=== PATIENT | female | born 1945 | race Two or more races ===

== ENCOUNTER 2017-09-21 13:16 | Inpatient (IN) | payer MEDICARE, MEDICAID ==
[~2017-09-21] VITALS: Ht 167.6 cm; Wt 76.2 kg
--- NOTE | 2017-09-21 13:32 | NUR ---
[employer] OFFICE SERVICES REPRESENTATIVE AT BEDSIDE FOR EVAL.
[2017-09-21 13:48] LABS: BASOPHILS % (AUTO) 0.3 % (0.0-2.0); EOSINOPHILS # (AUTO) 0.2 /CMM (0.0-0.7); EOSINOPHILS % (AUTO) 2.1 % (0.0-6.0); HEMATOCRIT 36 % (33-45); HEMOGLOBIN 12.3 g/dL (11.5-14.8); LYMPHOCYTES % (AUTO) 28.1 % (20.0-44.0); MEAN CORPUSCULAR HEMOGLOBIN 30 PG (26.0-33.0); MEAN CORPUSCULAR HGB CONC 34 g/dl (31.0-36.0); MEAN CORPUSCULAR VOLUME 90 fL (82-100); MONOCYTES # (AUTO) 0.6 /CMM (0.1-1.30); MONOCYTES % (AUTO) 7.8 % (2.0-12.0); NEUTROPHILS # (AUTO) 4.4 /CMM (1.8-8.9); NEUTROPHILS % (AUTO) 61.7 % (43.0-81.0); PLATELET COUNT (AUTO) 240 /CMM (150-450); RDW COEFFICIENT OF VARIATION 12.8 (11.5-15.0); RED BLOOD CELL COUNT(AUTO) 4.07 MIL/uL (4.0-5.2); WHITE BLOOD COUNT (AUTO) 7.2 K/uL (4.3-11.0)
[2017-09-21 14:03] LABS: CALCIUM, SERUM 8.7 mg/dL (8.5-10.1); CARBON DIOXIDE 24 mmol/L (21-32); CHLORIDE 102 mmol/L (98-107); CREATININE 2.3 mg/dL (0.6-1.3); GLUCOSE 103 mg/dL (74-106); POTASSIUM 3.7 mmol/L (3.5-5.1); SODIUM SERUM 136 mmol/L (136-145); UREA NITROGEN, BLOOD 30 mg/dL (7-18)
[2017-09-21 14:07] LABS: INR 0.96 (0.87-1.13)
[2017-09-21 15:10] LABS: TROPONIN I < 0.017 ng/mL (0.00-0.056)
--- NOTE | 2017-09-21 15:19 | NUR ---
ROOM 112-2 FOR BED
[2017-09-21 15:45] LABS: APPEARANCE,URINE Clear (CLEAR); BILIRUBIN,URINE Negative (NEGATIVE); BLOOD, URINE Trace-lysed Ery/uL (NEGATIVE); COLOR,URINE Yellow (YELLOW); KETONES,URINE Negative (NEGATIVE); LEUKOCYTE ESTERASE ,URINE Small (NEGATIVE); NITRITE, URINE Negative (NEGATIVE); PH,URINE 6.5 (5.0-8.0); PROTEIN,URINE Trace mg/dl (NEGATIVE); UGLUCOSE Negative (NEGATIVE); UROBILINOGEN,URINE 0.2 EU/dL (0.2)
[2017-09-21 15:58] LABS: BACTERIA,URINE Many /HPF (None Seen); RBC,URINE 0-2 /HPF (0-2)
[2017-09-21 15:59] LABS: SQUAMOUS EPITHELIAL CELL,UR Few /HPF (None Seen)
[2017-09-21] MEDS: CEFTRIAXONE 1 G in IV D5W 50 ML IV SCH (16:00)
--- NOTE | 2017-09-21 16:01 | NUR ---
REPORT GIVEN TO DEVIN. PT AWAITING TRANSFER TO FLOOR.
--- NOTE | 2017-09-21 16:11 | NUR ---
SENIOR PHYSICIAN AT BEDSIDE FOR BLOOD DRAW.
[2017-09-21] MEDS ORDERED: CEFTRIAXONE 1GM BAG (ER ONLY) 100 ML IV ONE (16:12)
[2017-09-21] MEDS ORDERED: CEFTRIAXONE 2 G in IV D5W 50 ML IV ONE (16:30)
[2017-09-21 17:00] VITALS: BP 110/30
--- NOTE | 2017-09-21 17:00 | NUR ---
RN NOTE RECEIVED PT ON BED, AOX1, FARSI ONLY SPEAKING, DAUGHTER AT BED SIDE, PER DAUGHTER PT DOES NOT MAKE MUCH SENSE WHEN TALKING, IV IN LEFT HAND, INFUSING ROCEPHIN, PT STABLE, VS STABLE, BED ALARM ON, CALL LIGHT WITHIN REACH, SKIN INTACT, INSURANCE PREMIUM AUDITOR IN PLACE, SR . DIAPER IN PLACE. WILL WAIT FOR DR SPRING TO PUT ADMITTING ORDERS. WILL MONITOR THE PT.
[2017-09-21] MEDS ORDERED: CARV3.122 PO (17:57)
[2017-09-21] MEDS ORDERED: DONE10TA44 PO (17:58)
[2017-09-21 18:00] VITALS: BP 110/30
[2017-09-21] MEDS ORDERED: ESCI20TA PO (18:00)
[2017-09-21] MEDS ORDERED: LOSA50TA21 PO (18:03)
[2017-09-21] MEDS ORDERED: MEMA10TA PO (18:04)
[2017-09-21] MEDS ORDERED: PANT40TA4 PO (18:08)
[2017-09-21] MEDS ORDERED: PRAV40TA3 PO (18:09)
[2017-09-21] MEDS ORDERED: TRIA1CAP6 PO (18:10)
[2017-09-21] MEDS ORDERED: SOLI10TA PO (18:11)
[2017-09-21] MEDS ORDERED: MULT-194 PO (18:14)
[2017-09-21] MEDS ORDERED: IBAN150T PO (18:15)
[2017-09-21] MEDS ORDERED: MAGNESIUM HYDROXIDE 30 ML UDC PO PRN (18:30)
[2017-09-21] MEDS ORDERED: ACETAMINOPHEN 325 MG TABLET PO PRN (18:30)
[2017-09-21] MEDS ORDERED: Z GUARD REMEDY 2 OZ OINT TP PRN (18:30)
[2017-09-21] MEDS ORDERED: HYDROCODONE/APAP 5/325MG 1 EACH TABLET PO PRN (18:30)
[2017-09-21] MEDS ORDERED: MAG HYDROX/AL HYDROX/SIMETH 30 ML UDC PO PRN (18:30)
[2017-09-21] MEDS ORDERED: ONDANSETRON HCL/PF 4 MG/2 ML VIAL IVP PRN (18:30)
--- NOTE | 2017-09-21 19:00 | NUR ---
RN NOTE ROCEPHIN WAS GIVEN 2 G, THUS THE NEW ORDER FOR ROCEPHIN 1 G HELD UNTIL TOMORROW. ENDORSE TO CRADLE SLIDE MAKER.
[2017-09-21] MEDS: IV NS 0.9% 1,000 ML IV PRN (19:49)
[2017-09-21 20:00] VITALS: BP 104/36
--- NOTE | 2017-09-21 20:00 | NUR ---
RN NOTES UNABLE TO CHECK ORTHOSTATICS, PATIENT NONCOMPLIANT, REFUSING CARE AFTER FIRST SET OF VITALS TAKEN
[2017-09-21 20:20] LABS: AMYLASE 57 U/L (25-115); LIPASE 177 U/L (73-393)
--- NOTE | 2017-09-21 20:56 | NUR ---
RN NOTES PATIENT AGITATED AFTER LAB CAME TO DRAW BLOOD. PATIENT STILL CONFUSED, DOES NOT FOLLOW DIRECTIONS. PATIENT NOW ATTEMPTING TO PULL OUT IV ACCESS. DR LEWIS MADE AWARE, WITH NEW ORDER FOR BILATERAL SOFT WRIST RESTRAINTS. WILL APPLY RESTRAINTS AND CLOSELY MONITOR THE PATIENT. CHARGE NURSE LOIUSE MADE AWARE, PATIENT MOVED CLOSER TO THE NURSING STATION FOR CLOSER MONITORING
[2017-09-21] MEDS: DONEPEZIL 5 MG TABLET PO SCH (21:11)
[2017-09-22] VITALS (9 sets, daily range): BP systolic 106–146; BP diastolic 53–82
--- NOTE | 2017-09-22 06:33 | NUR ---
RN CLOSING NOTES PATIENT IN BED, REFUSED AM LABS, SHAKING ARMS BACK AND FORTH, LAWYERS UNABLE TO DRAW LABS FOR SAFETY RISK. PER LAB, THEY WILL COME BACK AT A LATER TIME TO TRY AGAIN. Addendum: 09/22/17 at 0635 by ANGELA REILLY RN WILL ENDORSE THE PATIENT TO THE AM SHIFT NURSE FOR RICH
[2017-09-22] MEDS ORDERED: Medication Not On Formulary EA (Solifenacin Succinate (Vesicare) 1 TAB) PO SCH (09:00)
[2017-09-22] MEDS ORDERED: CARVEDILOL 3.125 MG TABLET PO SCH (09:00)
[2017-09-22] MEDS ORDERED: Medication Not On Formulary EA (Pravastatin Sodium 1 TAB) PO SCH (09:00)
[2017-09-22] MEDS: PANTOPRAZOLE 40 MG TABLET.DR PO SCH (09:32)
[2017-09-22] MEDS: ESCITALOPRAM OXALATE (10 MG) 10 MG TABLET PO SCH (09:32)
[2017-09-22] MEDS: MEMANTINE HCL 5 MG TABLET PO SCH (09:32)
[2017-09-22] MEDS: MULTIPLE VIT (LYCOPENE/FA/MV,CA,IRON,MIN/LUT)1 TAB PO SCH (09:32)
[2017-09-22] MEDS: AMLODIPINE BESYLATE 5 MG TABLET PO SCH (09:33)
[2017-09-22 10:54] LABS: BASOPHILS % (AUTO) 0.3 % (0.0-2.0); EOSINOPHILS # (AUTO) 0.1 /CMM (0.0-0.7); EOSINOPHILS % (AUTO) 1.5 % (0.0-6.0); HEMATOCRIT 38 % (33-45); HEMOGLOBIN 12.7 g/dL (11.5-14.8); LYMPHOCYTES # (AUTO) 1.7 /CMM (0.8-4.8); LYMPHOCYTES % (AUTO) 25.7 % (20.0-44.0); MEAN CORPUSCULAR HEMOGLOBIN 30 PG (26.0-33.0); MEAN CORPUSCULAR HGB CONC 34 g/dl (31.0-36.0); MEAN CORPUSCULAR VOLUME 89 fL (82-100); MONOCYTES # (AUTO) 0.5 /CMM (0.1-1.30); MONOCYTES % (AUTO) 6.9 % (2.0-12.0); NEUTROPHILS # (AUTO) 4.3 /CMM (1.8-8.9); NEUTROPHILS % (AUTO) 65.6 % (43.0-81.0); PLATELET COUNT (AUTO) 212 /CMM (150-450); RDW COEFFICIENT OF VARIATION 12.8 (11.5-15.0); RED BLOOD CELL COUNT(AUTO) 4.23 MIL/uL (4.0-5.2); RETICULOCYTE COUNT 1.6 % (0.6-2.5); WHITE BLOOD COUNT (AUTO) 6.6 K/uL (4.3-11.0)
[2017-09-22 11:19] LABS: INR 1.01 (0.87-1.13); PROTHROMBIN TIME 10.5 SECS (9.5-12.7)
[2017-09-22 11:21] LABS: IRON, SERUM 24 ug/dl (50-175); TOTAL IRON BINDING CAPACITY 213 ug/dl (250-450)
[2017-09-22 11:22] LABS: ALANINE AMINOTRANSFERASE 38 U/L (12-78); ALBUMIN 3.2 g/dL (3.4-5.0); ALKALINE PHOSPHATASE 61 U/L (46-116); ASPARTATE AMINOTRANSFERASE 26 U/L (15-37); BILIRUBIN,TOTAL 0.4 mg/dL (0.2-1.0); CALCIUM, SERUM 9.2 mg/dL (8.5-10.1); CARBON DIOXIDE 26 mmol/L (21-32); CHLORIDE 105 mmol/L (98-107); CREATININE 1.8 mg/dL (0.6-1.3); GLUCOSE 136 mg/dL (74-106); PHOSPHORUS 4.3 mg/dL (2.5-4.9); POTASSIUM 3.6 mmol/L (3.5-5.1); SODIUM SERUM 141 mmol/L (136-145); TOTAL PROTEIN, SERUM 6.9 g/dL (6.4-8.2); UREA NITROGEN, BLOOD 24 mg/dL (7-18)
[2017-09-22 11:40] LABS: CHOLESTEROL 109 mg/dL (<200); HDL CHOLESTEROL 35 mg/dL (40-60); LDL 59 mg/dL (0-99); THYROID STIMULATING HORMONE 0.408 uIU/mL (0.358-3.74); TRIGLYCERIDES 108 mg/dL (30-150)
[2017-09-22 11:46] LABS: TROPONIN I 0.014 ng/mL (0.00-0.056)
[2017-09-22] MEDS: IV NS 0.9% 1,000 ML IV PRN (12:18)
[2017-09-22] MEDS: ASPIRIN EC 325 MG TABLET.DR PO SCH (13:54)
[2017-09-22] MEDS: CEFTRIAXONE 1 G in IV D5W 50 ML IV SCH (15:25)
[2017-09-22] MEDS: OXYBUTYNIN CHLORIDE 5 MG TABLET PO SCH (17:10)
--- NOTE | 2017-09-22 19:45 | NUR ---
DOCUMENTATION COORDINATOR INITIAL NOTE PT RECEIVED IN NO ACUTE DISTRESS AT THIS TIME. PT IS A/O X1 FARSI SPEAKING WITH FAMILY AT BEDSIDE. ON TELE WITH SB 58. PT HAS A RFA 22G THAT IS CLEAN DRY AND INTACT. PT HAS TAKEN OFF NC 2L BUT WILL ATTEMPT TO PLACE ON HER AGAIN. COMFORT AND SAFETY MEASURES TO BE ENSURED DURING THE SHIFT. WILL CONTINUE TO MONITOR FOR ANY CHANGES.
[2017-09-22] MEDS: DONEPEZIL 5 MG TABLET PO SCH (21:44)
--- NOTE | 2017-09-22 22:21 | NUR ---
RN NOTES MD WITH NEW ORDER FOR 1:1 SITTER, BILATERAL SOFT WRIST RESTRAINTS DC'D
[2017-09-23] VITALS: BP 142/62
[2017-09-23 04:00] VITALS: BP 120/50
--- NOTE | 2017-09-23 07:59 | NUR ---
ACCOUNTS PAYABLE ASSOCIATE NOTE PATIENT IN BED , RESTING COMFORTABLY , ON RA NO SOB NOTED , ON TELE MONITOR SR 61 , RT FA HL INTACT NO S\S INFECTION NOTED , ON IVF ORDERED, BED IN LOWEST AND LOCKED POSITION , CALL LIGHT WITHIN REACH, WITH SITTER AT BED SIDE ,RESPIRATION EVEN UNLABORED , WILL CONT TO MONITOR CLOSELY
[2017-09-23 08:00] VITALS: BP 140/72
[2017-09-23] MEDS: MEMANTINE HCL 5 MG TABLET PO SCH (08:36)
[2017-09-23] MEDS: AMLODIPINE BESYLATE 5 MG TABLET PO SCH (08:37)
[2017-09-23] MEDS: ESCITALOPRAM OXALATE (10 MG) 10 MG TABLET PO SCH (08:39)
[2017-09-23] MEDS: OXYBUTYNIN CHLORIDE 5 MG TABLET PO SCH ×3 (08:40→16:26)
[2017-09-23] MEDS: ASPIRIN EC 325 MG TABLET.DR PO SCH (08:40)
[2017-09-23] MEDS: ATORVASTATIN 10 MG TABLET PO SCH (08:42)
[2017-09-23] MEDS: MULTIPLE VIT (LYCOPENE/FA/MV,CA,IRON,MIN/LUT)1 TAB PO SCH (08:43)
[2017-09-23] MEDS: PANTOPRAZOLE 40 MG TABLET.DR PO SCH (08:43)
[2017-09-23 09:33] LABS: BASOPHILS % (AUTO) 0.6 % (0.0-2.0); EOSINOPHILS # (AUTO) 0.2 /CMM (0.0-0.7); EOSINOPHILS % (AUTO) 3.3 % (0.0-6.0); HEMATOCRIT 37 % (33-45); HEMOGLOBIN 12.5 g/dL (11.5-14.8); LYMPHOCYTES # (AUTO) 1.6 /CMM (0.8-4.8); LYMPHOCYTES % (AUTO) 34.9 % (20.0-44.0); MEAN CORPUSCULAR HEMOGLOBIN 30 PG (26.0-33.0); MEAN CORPUSCULAR HGB CONC 34 g/dl (31.0-36.0); MEAN CORPUSCULAR VOLUME 89 fL (82-100); MONOCYTES # (AUTO) 0.3 /CMM (0.1-1.30); MONOCYTES % (AUTO) 6.9 % (2.0-12.0); NEUTROPHILS # (AUTO) 2.5 /CMM (1.8-8.9); NEUTROPHILS % (AUTO) 54.3 % (43.0-81.0); PLATELET COUNT (AUTO) 216 /CMM (150-450); RDW COEFFICIENT OF VARIATION 12.5 (11.5-15.0); RED BLOOD CELL COUNT(AUTO) 4.16 MIL/uL (4.0-5.2); WHITE BLOOD COUNT (AUTO) 4.7 K/uL (4.3-11.0)
[2017-09-23 09:54] LABS: ALANINE AMINOTRANSFERASE 34 U/L (12-78); ALBUMIN 3.2 g/dL (3.4-5.0); ALKALINE PHOSPHATASE 61 U/L (46-116); ASPARTATE AMINOTRANSFERASE 25 U/L (15-37); BILIRUBIN,TOTAL 0.3 mg/dL (0.2-1.0); CARBON DIOXIDE 28 mmol/L (21-32); CHLORIDE 106 mmol/L (98-107); CREATININE 1.3 mg/dL (0.6-1.3); GLUCOSE 118 mg/dL (74-106); MAGNESIUM 1.8 mg/dL (1.8-2.4); PHOSPHORUS 3.4 mg/dL (2.5-4.9); POTASSIUM 3.3 mmol/L (3.5-5.1); SODIUM SERUM 142 mmol/L (136-145); TOTAL PROTEIN, SERUM 7.1 g/dL (6.4-8.2); TROPONIN I < 0.017 ng/mL (0.00-0.056); UREA NITROGEN, BLOOD 16 mg/dL (7-18)
--- NOTE | 2017-09-23 10:43 | NUR ---
VORTEX OPERATOR NOTE SEEN BY PT ,ABLE TO AMBULATE WITH WALKER IN HALLWAY WITH MIN ASSISTANCE
[2017-09-23 12:00] VITALS: BP 132/46
--- NOTE | 2017-09-23 12:00 | NUR ---
BUSINESS CONTINUITY DIRECTOR NOTE AMBULATE WITH STUFF NOT IN ACUTE DISTRESS, WILL CONT TO MONITOR CLOSELY
[2017-09-23] MEDS ORDERED: FLU VACC QS 2017-18(36MOS+)/PF 0.5 ML DISP.SYRIN IM ONE (15:00)
[2017-09-23] MEDS: CEFTRIAXONE 1 G in IV D5W 50 ML IV SCH (15:25)
--- NOTE | 2017-09-23 15:30 | NUR ---
MS RN NOTE TELE REMOVED ORDERED ,WILL CONT TO MONITOR CLOSELY
--- NOTE | 2017-09-23 15:32 | NUR ---
MS RN NOTE FLU VACCINE GIVEN ORDERED
[2017-09-23 16:00] VITALS: BP 116/74
[2017-09-23] MEDS ORDERED: POTASSIUM CHLORIDE 20 MEQ TAB.PRT.SR PO ONE (16:00)
--- NOTE | 2017-09-23 17:42 | NUR ---
MS RN NOTE HAVING DINNER , ABLE TO EAT SELF, NOT IN ACUTE DISTRESS, ALL NEEDS ATTENDED
--- NOTE | 2017-09-23 18:26 | NUR ---
MS RN NOTE ASSISTED TO BR KEEP CLEAN DRY ALL NEEDS ATTENDED ,SITTER AT BEDSIDE
--- NOTE | 2017-09-23 19:05 | NUR ---
RN OPENING NOTES RECEIVED REPORT FROM GRETCHEN SHERMAN. PATIENT A/A/O X2, FARSI SPEAKING ONLY. BREATHING EVEN & UNLABORED, ON ROOM AIR. DENIES SOB OR DIFFICULTY BREATHING. PULSES PRESENT. RIGHT FOREARM IV #22 INTACT & PATENT W/ DRESSING CDI, ON SALINE LOCK. DENIES ANY PAIN OR DISCOMFORT @ THIS TIME. ABLE TO AMBULATE W/ ASSISTANCE. SAFETY MEASURES IN PLACE W/ SIDE RAILS UP, BED LOCKED IN LOWEST POSITION & CALL LIGHT WITHIN REACH. SITTER @ BEDSIDE. WILL CONTINUE TO MONITOR.
[2017-09-23 20:00] VITALS: BP 112/56
[2017-09-24 04:00] VITALS: BP 113/54
[2017-09-24 07:19] LABS: BASOPHILS % (AUTO) 0.6 % (0.0-2.0); EOSINOPHILS # (AUTO) 0.1 /CMM (0.0-0.7); EOSINOPHILS % (AUTO) 2.4 % (0.0-6.0); HEMATOCRIT 36 % (33-45); HEMOGLOBIN 12.2 g/dL (11.5-14.8); LYMPHOCYTES % (AUTO) 32.4 % (20.0-44.0); MEAN CORPUSCULAR HEMOGLOBIN 30 PG (26.0-33.0); MEAN CORPUSCULAR HGB CONC 34 g/dl (31.0-36.0); MEAN CORPUSCULAR VOLUME 89 fL (82-100); MONOCYTES # (AUTO) 0.4 /CMM (0.1-1.30); MONOCYTES % (AUTO) 6.7 % (2.0-12.0); NEUTROPHILS # (AUTO) 3.6 /CMM (1.8-8.9); NEUTROPHILS % (AUTO) 57.9 % (43.0-81.0); PLATELET COUNT (AUTO) 215 /CMM (150-450); RDW COEFFICIENT OF VARIATION 12.2 (11.5-15.0); RED BLOOD CELL COUNT(AUTO) 4.07 MIL/uL (4.0-5.2); WHITE BLOOD COUNT (AUTO) 6.2 K/uL (4.3-11.0)
[2017-09-24 07:35] LABS: ALANINE AMINOTRANSFERASE 37 U/L (12-78); ALBUMIN 3.3 g/dL (3.4-5.0); ALKALINE PHOSPHATASE 58 U/L (46-116); ASPARTATE AMINOTRANSFERASE 28 U/L (15-37); BILIRUBIN,TOTAL 0.4 mg/dL (0.2-1.0); CARBON DIOXIDE 29 mmol/L (21-32); CHLORIDE 103 mmol/L (98-107); CREATININE 1.2 mg/dL (0.6-1.3); GLUCOSE 149 mg/dL (74-106); MAGNESIUM 1.7 mg/dL (1.8-2.4); PHOSPHORUS 2.8 mg/dL (2.5-4.9); POTASSIUM 3.6 mmol/L (3.5-5.1); SODIUM SERUM 140 mmol/L (136-145); UREA NITROGEN, BLOOD 16 mg/dL (7-18)
--- NOTE | 2017-09-24 07:46 | NUR ---
RN INITIAL NOTES RECEIVED PT AWAKE SITTING AT BEDSIDE FOR BREAKFAST. PT ALERT AND ORIENTED; ABLE TO MAKE NEEDS KNOWN. NO INDICATION OF SYNCOPE NOTED. SAFETY ENSURED.WILL MONITOR.
[2017-09-24 08:00] VITALS: BP 124/51
[2017-09-24] MEDS: OXYBUTYNIN CHLORIDE 5 MG TABLET PO SCH ×3 (08:56→17:44)
[2017-09-24] MEDS: ATORVASTATIN 10 MG TABLET PO SCH (08:56)
[2017-09-24] MEDS: MEMANTINE HCL 5 MG TABLET PO SCH (08:56)
[2017-09-24] MEDS: ASPIRIN EC 325 MG TABLET.DR PO SCH (08:56)
[2017-09-24] MEDS: MULTIPLE VIT (LYCOPENE/FA/MV,CA,IRON,MIN/LUT)1 TAB PO SCH (08:56)
[2017-09-24] MEDS: PANTOPRAZOLE 40 MG TABLET.DR PO SCH (08:57)
[2017-09-24] MEDS: ESCITALOPRAM OXALATE (10 MG) 10 MG TABLET PO SCH (08:57)
[2017-09-24] MEDS: AMLODIPINE BESYLATE 5 MG TABLET PO SCH (09:00)
[2017-09-24] MEDS: Magnesium 1GM/D5W 100ML PREMIX 100 ML IV SCH ×2 (10:15→11:32)
[2017-09-24] MEDS ORDERED: CEFP200T14 PO (11:22)
[2017-09-24] MEDS ORDERED: AMLO5TAB2 PO (11:22)
[2017-09-24] MEDS ORDERED: OXYB5TAB11 PO (11:22)
[2017-09-24] MEDS ORDERED: ASPI81TA2 PO (11:22)
[2017-09-24] MEDS: CEFTRIAXONE 1 G in IV D5W 50 ML IV SCH (16:11)
--- NOTE | 2017-09-24 18:22 | NUR ---
rn closing notes pt has no complaints of pain made. able to ambulate but with unsteady gait, uncooperative at times. sitter at bedside. meds given. no significant abnormal changes noted. will endorse to next shift for continuity of care in stable condition
--- NOTE | 2017-09-24 19:05 | NUR ---
RN OPENING NOTES RECEIVED REPORT FROM JERO SHERMAN. PATIENT A/A/O X2, FARSI SPEAKING ONLY. BREATHING EVEN & UNLABORED, ON ROOM AIR. DENIES SOB OR DIFFICULTY BREATHING. PULSES PRESENT. RIGHT FOREARM IV #22 INTACT & PATENT W/ DRESSING CDI, ON SALINE LOCK. DENIES ANY PAIN OR DISCOMFORT @ THIS TIME. ABLE TO AMBULATE W/ ASSISTANCE. DENIES ANY DIZZINESS. SAFETY MEASURES IN PLACE W/ SIDE RAILS UP, BED LOCKED & IN LOWEST POSITION & CALL LIGHT WITHIN REACH. SITTER @ BEDSIDE. WILL CONTINUE TO MONITOR.
[2017-09-24 20:00] VITALS: BP 104/48
[2017-09-25 04:00] VITALS: BP 101/56
--- NOTE | 2017-09-25 07:30 | NUR ---
RN MS NOTES PT IN BED, AWAKE, ALERT, ABLE TO SPEAK LITTLE ROMANSH, DENIES PAIN, NOT IN DISTRESS, CALL LIGHT WITHIN REACH, ON LOW BED FOR SAFETY, NEEDS ATTENDED.
[2017-09-25 08:00] VITALS: BP 121/61
[2017-09-25] MEDS: ATORVASTATIN 10 MG TABLET PO SCH (08:43)
[2017-09-25] MEDS: ESCITALOPRAM OXALATE (10 MG) 10 MG TABLET PO SCH (08:43)
[2017-09-25] MEDS: MULTIPLE VIT (LYCOPENE/FA/MV,CA,IRON,MIN/LUT)1 TAB PO SCH (08:43)
[2017-09-25] MEDS: MEMANTINE HCL 5 MG TABLET PO SCH (08:43)
[2017-09-25] MEDS: AMLODIPINE BESYLATE 5 MG TABLET PO SCH (08:43)
[2017-09-25] MEDS: PANTOPRAZOLE 40 MG TABLET.DR PO SCH (08:43)
[2017-09-25] MEDS: OXYBUTYNIN CHLORIDE 5 MG TABLET PO SCH ×3 (08:43→16:20)
[2017-09-25] MEDS: ASPIRIN EC 325 MG TABLET.DR PO SCH (08:49)
--- NOTE | 2017-09-25 12:39 | NUR ---
RN MS NOTES PT IN BED, RESTING, NO COMPLAINT OF PAIN, NOT IN DISTRESS, SITTER AT BEDSIDE, SAFETY PRECAUTIONS OBSERVED, ASSISTED WITH MEALS AND ADL'S.
--- NOTE | 2017-09-25 16:08 | NUR ---
RN MS NOTES SPOKE WITH PT'S DAUGHTER RAFI, STATED THAT SHE FILED AN APPEAL AND THAT SHE HAS NOT YET DECIDED IF SHE WOULD LIKE HER MOM TO BE DISCHARGED TO [address] [place] [address], [id number], SAID THEY ARE WAITING FOR MEDICARE'S DECISION.
[2017-09-25] MEDS: CEFTRIAXONE 1 G in IV D5W 50 ML IV SCH (16:20)
--- NOTE | 2017-09-25 18:08 | NUR ---
RN MS NOTES PT IN BED, AWAKE, ALERT, EATING DINNER, ASSISTED WITH MEALS, DAUGHTER AT BEDSIDE, PM CARE RENDERED, DUE MEDS GIVEN ORDERED, CALL LIGHT WITHIN REACH, NEEDS ATTENDED.
[2017-09-25 20:00] VITALS: BP_SYST 114; BP_SYST 122; BP_SYST 123; BP_DIAS 64; BP_DIAS 72; BP_DIAS 81
[2017-09-26 04:00] VITALS: BP_SYST 121; BP_DIAS 85; BP_DIAS 95
[2017-09-26 07:14] VITALS: BP 125/62
[2017-09-26 07:16] VITALS: BP 125/62
--- NOTE | 2017-09-26 07:28 | NUR ---
MAT MAKING MACHINE TENDER INITIAL NOTE RN RECEIVED REPORT FROM PM RN. PATIENT A/A/O X2, FARSI SPEAKING ONLY. PTS BREATHING EVEN & UNLABORED, ON ROOM AIR. DENIES SOB OR DIFFICULTY BREATHING. PULSES PRESENT. RIGHT FOREARM IV #22 INTACT & PATENT W/ DRESSING CDI, ON SALINE LOCK. PT DENIES ANY PAIN OR DISCOMFORT @ THIS TIME. ABLE TO AMBULATE W/ ASSISTANCE. DENIES ANY DIZZINESS. SAFETY MEASURES IN PLACE W/ SIDE RAILS UP, BED LOCKED & IN LOWEST POSITION & CALL LIGHT WITHIN REACH. SITTER @ BEDSIDE. RN WILL CONTINUE TO MONITOR THROUGHOUT THE DAY .
[2017-09-26 08:00] VITALS: BP 113/74
[2017-09-26] MEDS: PANTOPRAZOLE 40 MG TABLET.DR PO SCH (08:13)
[2017-09-26] MEDS: ATORVASTATIN 10 MG TABLET PO SCH (08:13)
[2017-09-26] MEDS: MULTIPLE VIT (LYCOPENE/FA/MV,CA,IRON,MIN/LUT)1 TAB PO SCH (08:13)
[2017-09-26] MEDS: ESCITALOPRAM OXALATE (10 MG) 10 MG TABLET PO SCH (08:13)
[2017-09-26] MEDS: AMLODIPINE BESYLATE 5 MG TABLET PO SCH (08:13)
[2017-09-26] MEDS: MEMANTINE HCL 5 MG TABLET PO SCH (08:13)
[2017-09-26] MEDS: OXYBUTYNIN CHLORIDE 5 MG TABLET PO SCH ×3 (08:13→17:28)
[2017-09-26] MEDS: ASPIRIN EC 325 MG TABLET.DR PO SCH (08:19)
--- NOTE | 2017-09-26 13:28 | NUR ---
RN NOTE PATIENT REFUSED BLADDER CONTROL MEDICATION FOR 1300 RN WILL CONTINUE TO FOLLOW
--- NOTE | 2017-09-26 15:50 | NUR ---
RN note Rn spoke with patient daughter RAFI in regards to patient discharge patient daughter expressed concerns in regards to being able to supply transportation for her mother in the am . patient daughter states she is able to come and pick her mother up today at 8:15pm . RN informed patient daughter that she would contact rifle case repairer irene to find out if this arrangement would be ok. Rn spoke with rifle case repairer , irene agrees and acknowledges 8:15pm tow picker time for today rn will prepare patient for discharge
[2017-09-26 16:00] VITALS: BP_SYST 113; BP_SYST 120; BP_DIAS 65; BP_DIAS 74
--- NOTE | 2017-09-26 20:02 | NUR ---
RN Closing notes PT STABLE AT THIS TIME, PATIENT PREPARED FOR D/C PATIENT HAS AMBULATED WITH ASSISTANCE X4 TODAY . PATIENT ALSO HELPED TO THE RESTROOM PATIENT HAS HAD NO COMPLAINTS OF PAIN NO SOB NOTED PATIENT HAD SITTER THROUGHOUT THE DAY. MEDICATION ADMINISTERED CONTINUED DISCHARGE PLANING ENDORSED TO PM RN
--- NOTE | 2017-09-26 20:04 | NUR ---
MS-1/CLEARANCE DIVER PT DC'D HOME WITH DAUGHTER. ALL PAPER WORK GIVEN TO DAUGHTER. PT ESCORTED TO PRIVATE VEHICLE BY MARILEE.
[2017-09-26] MEDS ORDERED: CEPHALEXIN MONOHYDRATE 500 MG CAPSULE PO SCH (21:00)
[2017-10-21] MEDS ORDERED: IBANDRONATE SODIUM PO SCH (09:00)
== END 2017-09-26 20:05 | disposition home or self-care (01) | DRG 682 ==
LOC: ER 13:18 → TELE1 16:16 → MEDSG1 09-23 13:34
PROVIDERS: ADMIT Internal Medicine; ATTEND Internal Medicine
DX: N17.0 Acute kidney failure with tubular necrosis (principal); G93.41 Metabolic encephalopathy; E11.22 Type 2 diabetes mellitus with diabetic chronic kidney disease; I95.2 Hypotension due to drugs; E44.1 Mild protein-calorie malnutrition; N39.0 Urinary tract infection, site not specified; B96.20 Unspecified Escherichia coli [E. coli] as the cause of diseases classified elsewhere; E61.1 Iron deficiency; G30.9 Alzheimer's disease, unspecified; E86.0 Dehydration; F02.80 Dementia in other diseases classified elsewhere, unspecified severity, without behavioral disturbance, psychotic disturbance, mood disturbance, and anxiety; E87.6 Hypokalemia; H40.9 Unspecified glaucoma; R55 Syncope and collapse; N18.9 Chronic kidney disease, unspecified; M19.90 Unspecified osteoarthritis, unspecified site; R00.1 Bradycardia, unspecified; Z68.27 Body mass index [BMI] 27.0-27.9, adult; I12.9 Hypertensive chronic kidney disease with stage 1 through stage 4 chronic kidney disease, or unspecified chronic kidney disease
CPT/HCPCS: 36415; 70450-TC; 71010-TC; 76770-TC; 80048-TC; 80053-TC; 80061-TC; 81000-TC; 82150-TC; 82553-TC; 82728-TC; 82746; 83540-TC; 83690-TC; 83735-TC; 84100-TC; 84439-TC; 84443-TC; 84484-TC; 85025-TC; 85045-TC; 85652-TC; 85730-TC; 87040-TC; 87081-TC; 87086-TC; 87186-TC; 92611-TC; 93307-TC; 97116-TC; 97530-TC; A4606; J0696; J3475; J7030; J7050; J7060; Q2036; Z7610

== ENCOUNTER 2017-10-06 13:44 | Outpatient (CLI) | payer MEDICARE, MEDICAID ==
[~2017-10-06 13:44] MED LIST: AMLO5TAB2 PO; ASPI-1169 PO; CEFP200T14 PO; ESCI20TA PO; IBAN150T PO; MEMA10TA PO; MULT-194 PO; OXYB5TAB11 PO; PANT40TA4 PO; PRAV40TA3 PO; SOLI10TA2 PO
[2017-10-06 14:04] VITALS: BP 139/70
== END 2017-10-06 23:59 | disposition home or self-care (01) ==
LOC: MSC 13:44
PROVIDERS: ATTEND Internal Medicine
DX: N39.0 Urinary tract infection, site not specified (principal); I10 Essential (primary) hypertension; B96.20 Unspecified Escherichia coli [E. coli] as the cause of diseases classified elsewhere; E61.1 Iron deficiency; F03.90 Unspecified dementia, unspecified severity, without behavioral disturbance, psychotic disturbance, mood disturbance, and anxiety; M19.90 Unspecified osteoarthritis, unspecified site; E44.1 Mild protein-calorie malnutrition; G93.49 Other encephalopathy